=== PATIENT | female | born 1955 | race Caucasian/White ===

== ENCOUNTER 2021-05-09 13:03 | Emergency (ER) | payer BC, SELFPAY ==
[2021-05-09 13:18] VITALS: BP 158/82; PULSE 65; RESP 16; TEMP 37.5; O2SAT 96
--- NOTE | 2021-05-09 14:22 | ED.URI ---
HPI - URI/Sore Throat General Chief Complaint: Upper Respiratory Infection Stated Complaint: Flu Time Seen by Provider: 05/09/21 14:05 Source: patient and RN notes reviewed Mode of arrival: ambulatory Limitations: no limitations History of Present Illness HPI Narrative: Patient presents today complaining of a 2-day history of rhinorrhea, congestion, fever up to 99.9, loss of taste and smell. She reports very mild shortness of breath with exertion. She reports this is most prominent when she has to go up 13 stairs from the lower part of her home to the upper level. MD elicited complaint: cough and nasal congestion Related Data Home Medications Medication Instructions Recorded Confirmed bupropion HCl mg PO 05/09/21 latanoprost drp 05/09/21 methimazole 05/09/21 metoprolol succinate PO 05/09/21 omeprazole 05/09/21 quetiapine 05/09/21 Allergies Allergy/AdvReac Type Severity Reaction Status Date / Time cephalexin Allergy Unknown Verified 02/08/20 15:08 Review of Systems Review of Systems: CONSTITUTIONAL: Denies body aches, fever, chills, or sweats. EYES: Denies visual changes, redness, or discharge. ENT: Denies congestion, sore throat, or otalgia.+ Rhinorrhea, loss of taste and smell CARDIOVASCULAR: Denies chest pain, palpitations, or edema. RESPIRATORY: + Cough, shortness of breath with exertion GASTROINTESTINAL: Denies abdominal pain, nausea, vomiting, or diarrhea. GENITOURINARY: Denies dysuria or hematuria. SKIN: Denies rash, itching, or wounds. MUSCULOSKELETAL: Denies back pain, joint pain, or myalgia. NEUROLOGIC: Denies headache, numbness, tingling, or weakness. PSYCH: Denies depression or anxiety. [facility] Past Medical History Medical History Acid reflux Cholecystectomy planned Disorder of thyroid Fluid excess Stomach fluid drained Glaucoma Hernia Abdominal Vaginal delivery X4 11/21/80 Full term male 7lbs 10oz 08/29/82 Full term female 9lbs 12oz 03/19/89 Full term male 9lbs 10oz 04/27/90 Full term male 9lbs 12 oz Surgical History Surgical History H/O knee surgery Right knee H/O shoulder surgery Right arm H/O: hysterectomy [place] teeth removed Family History Family History Mother Breast cancer Grandparent Diabetes mellitus Cerebrovascular accident Father Hypertension Cerebrovascular accident Other Diabetes mellitus Social History Social History Smoking status: Never smoker Alcohol intake: never Substance use: never Comments At time of signature, I have reviewed and agree with nursing past medical, surgical, social and family history unless otherwise noted. Please see nursing chart for further information. There is no relevant family history pertinent to the presenting complaint Exam Narrative: GENERAL: Well-appearing, well-nourished, and in no acute distress. HEAD: Normocephalic, atraumatic. EYES: EOMI. No redness or drainage. Conjunctivae normal. ENT: Mucous membranes pink and moist. Nares clear. No rhinorrhea. TMs normal bilaterally. Throat normal. Uvula midline. NECK: Normal AROM. Supple. No lymphadenopathy. CHEST: No respiratory distress. Clear to auscultation. HEART: Regular rate and rhythm. No murmur appreciated. Normal peripheral pulses. EXTREMITIES: Normal range of motion. No edema. SKIN: Warm, dry, no rash. Capillary refill normal. Normal skin turgor. NEURO: No focal deficits. Alert and oriented x3. Gait steady. PSYCH: Normal affect. No signs of depression or anxiety. Course Vital Signs Vital signs: Vital Signs Temperature 99.5 F 05/09/21 13:18 Pulse Rate 65 05/09/21 13:18 Respiratory Rate 16 05/09/21 13:18 Blood Pressure 158/82 H 05/09/21 13:18 Pulse Oximetry 96 05/09/21 13:18
== END 2021-05-09 14:38 | disposition home or self-care (01) ==
PROVIDERS: Emergency Provider Nurse Practitioner; PCP Internal Medicine
DX: U07.1 COVID-19 (principal); K21.9 Gastro-esophageal reflux disease without esophagitis; H40.9 Unspecified glaucoma
CPT/HCPCS: 87426; 87804; 99213; C9803; G0463